=== PATIENT | female | born 1940 | race Caucasian/White ===

== ENCOUNTER 2024-10-25 13:13 | Outpatient (AMB) | payer MEDICARE, OTHER, SELFPAY ==
--- NOTE | 2024-10-25 13:24 | A.OFFPC_ITS ---
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 Intake Note: New patient visit Ball Points Inspector Required: No Allergies No Known Allergies Allergy (Verified 10/25/24 13:31) Tobacco use date assessed: 10/25/24 Fall risk assessment: 1 Fall in past year (Fell in [facility] on ice, nothing broken) Last assessed Fall Risk: 10/25/24 Dental Screening Dental Screen Date: 10/25/24 Did you have a dental visit in the last 12 months?: Yes Did you have a dental problem in the last 6 months where you did not have access to dental care?: No Was dental information given to patient?: Patient has dentist HPI HPI Comments History of Present Illness Details The patient is a 84 year old female with a past medical history of right breast cancer, osteopenia, DDD lumbar spine, neuropathy presenting to [facility] Heme/Onc: History of right breast cancer 2022 s/p lumpectomy. On anastrazole. Says Feb 2024 screening. BP: 164/86, 150/76. Blood pressure Had cold symptoms-patient took some acetaminophen. DXA recent-has not heard results. ROS CONSTITUTIONAL: Denies weight loss, fever and chills. HEENT: Denies changes in vision and hearing. RESPIRATORY: Denies SOB and cough. CV: Denies palpitations and CP GI: Denies abdominal pain, nausea, vomiting and diarrhea. : Denies dysuria and urinary frequency. MSK: Denies new myalgia and joint pain. SKIN: Denies rash and pruritus. NEUROLOGICAL: Denies headache PSYCHIATRIC: Denies recent changes in mood. PHYSICAL EXAM: GENERAL: Alert and oriented x 3. NAD EYES: EOMI. Anicteric. HENT: Moist mucous membranes. No scleral icterus. No cervical lymphadenopathy. LUNGS: Clear to auscultation bilaterally. CARDIOVASCULAR: Regular rate and rhythm. No murmur. No JVD. ABDOMEN: Soft, non-tender +bs EXTREMITIES: No edema. Non-tender. SKIN: No rashes or lesions. Warm. NEUROLOGIC: No focal neurological deficits. CN II-XII grossly intact PSYCHIATRIC: Cooperative. Appropriate mood and affect [facility] Social History Housing: Condominium Patient Tobacco Use Status: Never used Tobacco e-Cigarette/Vaping Use: Never Used Second Hand Smoke Exposure: No service: No Current occupational status: retired Current occupational exposures/hazards: No Cognitive needs: No Hearing needs: No Vision needs: No Coding Diagnoses Encounter to establish care Z76.89 Hyperlipidemia E78.5 Osteopenia M85.80 Assessment & Plan Assessment & Plan (1) Encounter to establish care: Code(s): Z76.89 - Persons encountering health services in other specified circumstances Category: Medical (2) Hyperlipidemia: Code(s): E78.5 - Hyperlipidemia, unspecified Category: Medical (3) Osteopenia: Code(s): M85.80 - Other specified disorders of bone density and structure, unspecified site Category: Medical
[2024-10-25 13:37] VITALS: BP 164/86; PULSE 83; TEMP 37.5; O2SAT 95; BMI 29.9
[2024-10-25 13:40] VITALS: BP 150/76
--- NOTE | 2024-10-25 13:51 | AM.OFFVISMDC ---
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 Heme/Onc: History of right breast cancer 2022 s/p lumpectomy. On anastrazole. Says Feb 2024 screening. Follows at [facility] BP: 164/86, 150/76. Blood pressure has been normal at last few visit. Had cold symptoms-patient took some acetaminophen. DXA recent-has not heard results. ROS CONSTITUTIONAL: Denies weight loss, fever and chills. HEENT: Nasal congestion RESPIRATORY: Denies SOB and cough. CV: Denies palpitations and CP GI: Denies abdominal pain, nausea, vomiting and diarrhea. : Denies dysuria and urinary frequency. MSK: Denies new myalgia and joint pain. SKIN: Denies rash and pruritus. NEUROLOGICAL: Denies headache PSYCHIATRIC: Denies recent changes in mood. PHYSICAL EXAM: GENERAL: Alert and oriented x 3. NAD EYES: EOMI. Anicteric. HENT: Moist mucous membranes. No scleral icterus. No cervical lymphadenopathy. LUNGS: Clear to auscultation bilaterally. CARDIOVASCULAR: Regular rate and rhythm. No JVD. ABDOMEN: Soft, non-tender +bs EXTREMITIES: No edema. Non-tender. SKIN: No rashes or lesions. Warm. NEUROLOGIC: No focal neurological deficits. CN II-XII grossly intact PSYCHIATRIC: Cooperative. Appropriate mood and affect Questionnaire Medicare Wellness Checkup What is your age?: 80 or older What gender do you identify with?: female During the past 4 weeks, how much have you been bothered by emotional problems such as feeling anxious, depressed, irritable, sad or downhearted, and blue?: not at all During the past 4 weeks, has your physical & emotional health limited your social activities with family, friends, neighbors, or groups?: not at all During the past 4 weeks, how much bodily pain have you generally had?: no pain During the past 4 weeks, was someone available to help you if you needed & wanted help?: yes, as much as I wanted During the past 4 weeks, what was the hardest physical activity you could do for at least 2 minutes?: moderate Can you get to places out of walking distance without help? (For eg., can you travel alone on buses, taxis or drive your car?): Yes Can you go shopping for groceries or clothes without someone's help?: Yes Can you prepare your own meals?: Yes Can you do your housework without help?: Yes Because of any health problems, do you need the help of another person with your personal care needs such as eating, bathing, dressing or getting around the house?: No Can you handle your own money without help?: Yes During the past 4 weeks, how would you rate your health in general?: excellent During the past 4 weeks how have things been going for you?: very well; could hardly better Are you having difficulties driving your car?: no Do you always fasten your seat belt when you are in a car?: yes, usually During past 4 weeks, have you been bothered by the following: never: Falling or dizzy when standing up, Sexual problems?, Trouble eating well?, Teeth or denture problems?, Problems using the telephone? and Tiredness or fatigue? Have you fallen 2 or more times in the past year?: No Are you afraid of falling?: No Are you a smoker?: no During the past 4 weeks, how many drinks of wine, beer, or other alcoholic beverages did you have?: no alcohol at all Do you exercise for about 20 minutes 3 or more times a week?: yes, some of the time Have you been given information to help with the following?: no: Hazards in your house that might hurt you? and no: Keeping track of your medications? How often do you have trouble taking medicines the way you have been told to take them?: I always take medicine as prescribed How confident are you that you can control & manage most of your health problems?: very confident What is your race?: White Mini Mental State Exam (MMSE) Orientation What is the (year) (season) (date) (day) (month)?: year, season, date, day and month Where are we (state) (county) (town or city) (hospital) (floor)?: state, county, town or city, hospital/clinic and floor Registration Name of 3 unrelated objects clearly and slowly, then ask patient to repeat all 3 of them. (1st repeat determines score. Make sure they can repeat all three): object 1 and object 2 Attention & Calculation (CHOOSE ONE) Ask pt to begin with 100 & count backward by 7. Stop after 5 repeats. If pt cannot ask them to spell the word WORLD backward.: 65 Recall Ask patient to repeat the 3 items from question #3.: object 3 Language Show patient a wristwatch & ask what it is. Repeat for pencil.: watch and pencil Ask the patient to repeat the phrase 'No ifs, ands, or buts' after you.: correct Ask the patient to 'take a piece of paper with their right hand' 'fold paper in half' 'place paper on floor': take paper in right hand, fold paper in half and place paper on floor Print the sentence 'CLOSE YOUR EYES' on a piece. If patient actually closes eyes then score.: followed written direction Give patient a blank piece of paper & ask to write a sentence. Score if it contains a noun & verb.: sentence contains subject and verb Ask patient to copy figure of intersecting pentagons exactly. Score if all 10 angles & 2 intersects are included.: all 10 angles present & 2 are intersected Score Score: 23 Activity of Daily Living Bathing - sponge bath, tub bath or shower: receives no assistance (gets in/out by self, if usual bathing means Dressing - getting clothes from closets & drawers, including inner/outer garments & fasteners.: gets clothes & gets completely dressed without help Toileting - going to the 'toilet room' for urine/bowel elimination & cleaning self/arranging clothes: goes to toilet room, cleans self, arranges clothes without help Transfer: moves in & out of bed and chair without help (may use support object) Continence: controls urination/bowel movements completely by self Feeding: feeds self without help Total Score: 0 Information obtained from: patient Using telephone: independent Traveling: independent Shopping: independent Preparing meals: independent Housework: independent Taking medicine: independent Managing money: independent PHQ-9 Over the last 2 weeks, how often have you been bothered by any of the following problems? 1. Little interest or pleasure in doing things: not at all 2. Feeling down, depressed, or hopeless: not at all 3. Trouble falling or staying asleep, or sleeping too much: not at all 4. Feeling tired or having little energy: not at all 5. Poor appetite or overeating: not at all 6. Feeling bad about yourself - or that you are a failure or have let yourself or your family down: not at all 7. Trouble concentrating on things, such as reading the newspaper or watching television: not at all 8. Moving or speaking so slowly that other people could have noticed. Or the opposite - being so fidgety or restless that you have been moving around a lot more than usual: not at all 9. Thoughts that you would be better off or of hurting yourself in some way: not at all Total score: 0 Depression Screening Interpretation: Negative Depression Screening Done: Yes 75601 - PHQ-9 Billing: Yes Source: Developed by Drs. Aneudy Doe, Susan Soto, Willy Yates and colleagues, with an educational bobbi from [employer]. Physical Exam Vital Signs: Last Vital Signs Temp 99.5 F 10/25/24 13:37 Pulse 83 10/25/24 13:37 BP 150/76 H 10/25/24 13:40 Pulse Ox 95 10/25/24 13:37 Oxygen Delivery Method Room Air 10/25/24 13:37 BMI result Body Mass Index 29.9 Assessment & Plan Assessment & Plan (1) Encounter to establish care: Code(s): Z76.89 - Persons encountering health services in other specified circumstances (2) Hyperlipidemia: Code(s): E78.5 - Hyperlipidemia, unspecified Qualifiers: Hyperlipidemia type: unspecified Qualified Code(s): E78.5 - Hyperlipidemia, unspecified (3) Osteopenia: Code(s): M85.80 - Other specified disorders of bone density and structure, unspecified site Qualifiers: Osteopenia location: unspecified Qualified Code(s): M85.80 - Other specified disorders of bone density and structure, unspecified site (4) Medicare annual wellness visit, subsequent: Code(s): Z00.00 - Encounter for general adult medical examination without abnormal findings Plan 84 yo to establish care/[facility] visit Past medical, surgical social reviewed HRA reviewed Independent Labs ordered Continue follow up onc Orders: Orders Complete Blood Count Auto Diff 10/25/24 E78.5 - Hyperlipidemia, unspecified, M85.80 - Other specified disorders of bone density and structure, unspecified site, R35.89 - Other polyuria, Z13.228 - Encounter for screening for other metabolic disorders Comprehensive Met. Panel 10/25/24 E78.5 - Hyperlipidemia, unspecified, M85.80 - Other specified disorders of bone density and structure, unspecified site, R35.89 - Other polyuria, Z13.228 - Encounter for screening for other metabolic disorders Vitamin D 25-OH (D2 and D3) 10/25/24 E78.5 - Hyperlipidemia, unspecified, M85.80 - Other specified disorders of bone density and structure, unspecified site, R35.89 - Other polyuria, Z13.228 - Encounter for screening for other metabolic disorders TSH reflex Free T4 10/25/24 E78.5 - Hyperlipidemia, unspecified, M85.80 - Other specified disorders of bone density and structure, unspecified site, R35.89 - Other polyuria, Z13.228 - Encounter for screening for other metabolic disorders Lipid Panel 10/25/24 E78.5 - Hyperlipidemia, unspecified, M85.80 - Other specified disorders of bone density and structure, unspecified site, R35.89 - Other polyuria, Z13.228 - Encounter for screening for other metabolic disorders Hemoglobin A1c 10/25/24 E78.5 - Hyperlipidemia, unspecified, M85.80 - Other specified disorders of bone density and structure, unspecified site, R35.89 - Other polyuria, Z13.228 - Encounter for screening for other metabolic disorders Quality Reporting (2019) Depression/Bipolar (159/160/161/177) PHQ-9: Total score: 0 Coding Level of Care Code Medicare Subsequent (G0439) Diagnoses Encounter to establish care Z76.89 Hyperlipidemia, unspecified hyperlipidemia type E78.5 Hyperlipidemia type: unspecified Osteopenia, unspecified location M85.80 Osteopenia location: unspecified Medicare annual wellness visit, subsequent Z00.00 Additional Codes PHQ-9 - 64830 - PHQ-9 Billing: Yes ([id number])
[2024-10-25 13:52] VITALS: BMI 29.9
--- OUTSIDE RECORDS SUMMARY | 2024-10-25 14:30 | XMS_ITS ---
[facility] Name [facility] Organization Unknown Care Team Organization Name Specialty Phone Email Start Date End [facility] Misti Bangura DO Primary Care 03/01/202209/21
== END 2024-10-25 13:58 | disposition home or self-care (01) ==
PROVIDERS: PCP Internal Medicine; Visit Provider Internal Medicine
DX: Z00.00 Encounter for general adult medical examination without abnormal findings (principal); E78.5 Hyperlipidemia, unspecified; Z76.89 Persons encountering health services in other specified circumstances; M85.80 Other specified disorders of bone density and structure, unspecified site

== ENCOUNTER 2024-10-25 13:13 | Outpatient (REF) | payer MEDICARE, OTHER, SELFPAY ==
[2024-10-25 17:53] LABS: MANUAL DIFF FLAG NO
[2024-10-25 18:13] LABS: Hematocrit 37.7 % (37.0-47.0); Hemoglobin 12.5 g/dl (12.0-16.0); Imm Gran Abs Auto 0.02 X10*3/uL (0.00-0.03); Imm Gran Pct Auto 0.3 % (0.0-0.4); Lymphocytes Absolute Auto 0.7 X10*3/uL (1.2-4.9); Mean Corpuscular HGB Conc 33.2 g/dl (31.0-35.0); Mean Corpuscular Hemoglobin 30.6 pg (27.0-33.0); Mean Corpuscular Volume 92.2 fL (80.0-98.0); NRBC Abs Auto 0.000 X10*3/uL (0.0-0.012); NRBC Pct Auto 0.0 /100WBC (0.0-0.2); Platelet Count 175 X10*3/uL (160-400); Red Blood Count 4.09 X10*6/uL (4.20-5.50); White Blood Count 6.4 X10*3/uL (4.8-10.8)
[2024-10-25 18:24] LABS: Hemoglobin A1C 141.0450 umol/L; Total Hemoglobin (HGBA1C) 3280.0649 umol/L
[2024-10-25 18:41] LABS: Alanine Aminotransferase 21 U/L (0-31); Albumin Level 4.5 g/dL (3.5-5.0); Alkaline Phosphatase 65 U/L (39-117); Anion Gap 14 (12-20); Aspartate Amino Transferase 36 U/L (5-31); Blood Urea Nitrogen 27 mg/dL (9-16); Calcium 10.4 mg/dL (8.4-10.2); Carbon Dioxide 31 mmol/L (22-29); Chloride 102 mmol/L (96-108); Cholesterol 187 mg/dL (<200); Estimated Glomerular Filt Rate 39; HDL Cholesterol 40 mg/dL (>40); Potassium 4.9 mmol/L (3.3-5.1); Sodium 142 mmol/L (135-145); Total Protein 7.1 g/dL (6.5-8.0); Triglycerides 161 mg/dL (<150)
[2024-10-31 15:19] LABS: Vitamin D 25-OH, D2 <4 ng/mL; Vitamin D 25-OH, D3 33 ng/mL; Vitamin D 25-OH, Total 33 ng/mL (30-100)
== END 2024-10-25 13:14 | disposition home or self-care (01) ==
LOC: HO.WFDLDS 13:13
PROVIDERS: PCP Internal Medicine; Visit Provider Internal Medicine
DX: Z00.00 Encounter for general adult medical examination without abnormal findings (principal); Z13.228 Encounter for screening for other metabolic disorders; Z13.1 Encounter for screening for diabetes mellitus; E78.5 Hyperlipidemia, unspecified; M85.80 Other specified disorders of bone density and structure, unspecified site; R35.89 Other polyuria; Z76.89 Persons encountering health services in other specified circumstances
CPT/HCPCS: 36415; 80053; 80061; 82306; 83036; 84443; 85025; 96127

== ENCOUNTER 2024-12-31 15:03 | Outpatient (AMB) | payer MEDICARE, OTHER, SELFPAY ==
--- NOTE | 2024-12-31 15:16 | A.OFFPC_ITS ---
Vital Signs 12/31/24 15:24 12/31/24 15:26 Height 5 ft 4.72 in Weight 180 lb BMI 30.2 BP 146/78 H 140/88 H Blood Pressure Location Rt brachial Rt brachial Position Sitting Sitting Respiration 14 Pulse 82 Pulse Source Pulse Oximeter Temp 98.4 F Temp Source Oral Pulse Oximetry (%) 97 Oxygen Delivery Method Room Air Intake Visit Reasons: reid discharge/elloquis Intake Note: Hospital discharge follow up. 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: No Allergies No Known Allergies Allergy (Verified 12/31/24 15:20) Tobacco use date assessed: 12/31/24 Fall risk assessment: 1 Fall in past year (last February on the ice.) Last assessed Fall Risk: 12/31/24 Dental Screening Dental Screen Date: 12/31/24 Did you have a dental visit in the last 12 months?: Yes Did you have a dental problem in the last 6 months where you did not have access to dental care?: No Was dental information given to patient?: Patient has dentist HPI HPI Comments History of Present Illness Details The patient is a 84 year old female with a past medical history of right breast cancer, osteopenia, DDD lumbar spine, neuropathy presenting for ER follow up/DVT Patient was seen in [facility] ER after outpatient duplex ordered by onc for LLE swelling showed +femoral DVT. Labs, vitals reassuring. She was started on eliquis. She is tolerating the medication well. Swelling has lessened. She denies shortness of breath. Thought to be provoked by bus ride to [place]. She was quite squished and did not have a lot of room to move. Heme/Onc: History of right breast cancer 2022 s/p lumpectomy. On anastrazole. Says Feb 2024 screening. Follows at [facility] BP: Borderline. Blood pressure has been normal at last few visit, mildly elevated today ROS see HPI PHYSICAL EXAM: GENERAL: Alert and oriented x 3. NAD EYES: EOMI. Anicteric. HENT: Moist mucous membranes. No scleral icterus. No cervical lymphadenopathy. LUNGS: Clear to auscultation bilaterally. CARDIOVASCULAR: Regular rate and rhythm. No JVD. ABDOMEN: Soft, non-tender +bs EXTREMITIES: No edema. Non-tender. SKIN: No rashes or lesions. Warm. NEUROLOGIC: No focal neurological deficits. CN II-XII grossly intact PSYCHIATRIC: Cooperative. Appropriate mood and affect [facility] Surgical History H/O: hysterectomy History of tonsillectomy History of appendectomy Social History [facility] Patient Tobacco Use Status: Never used Tobacco e-Cigarette/Vaping Use: Never Used Second Hand Smoke Exposure: No service: No Current occupational status: retired Cognitive needs: No Hearing needs: No Vision needs: Yes (glasses) Questionnaire PHQ-9 Over the last 2 weeks, how often have you been bothered by any of the following problems? 1. Little interest or pleasure in doing things: not at all 2. Feeling down, depressed, or hopeless: not at all 3. Trouble falling or staying asleep, or sleeping too much: not at all 4. Feeling tired or having little energy: not at all 5. Poor appetite or overeating: not at all 6. Feeling bad about yourself - or that you are a failure or have let yourself or your family down: not at all 7. Trouble concentrating on things, such as reading the newspaper or watching television: not at all 8. Moving or speaking so slowly that other people could have noticed. Or the opposite - being so fidgety or restless that you have been moving around a lot more than usual: not at all 9. Thoughts that you would be better off or of hurting yourself in some way: not at all Total score: 0 Depression Screening Interpretation: Negative Depression Screening Done: Yes 61741 - PHQ-9 Billing: Yes Source: Developed by Drs. Aneudy Doe, Susan Soto, Willy Yates and colleagues, with an educational bobbi from [employer]. Thrive Questionnaire I am a: Patient What is your living situation today?: I have a steady place to live Within the past 12 months, did the food you bought not last and you didn't have the money to get more?: Never true Within the past 12 months, did you worry whether your food would run out before you got money to buy more?: Never true Do you have trouble paying for medicines?: No Do you have trouble getting transportation to medical appointments?: No Do you have trouble paying your heating and electricity bill?: No Do you have trouble taking care of your child, family member or friend?: No Do you have trouble with day-to-day activities such as bathing, preparing meals, shopping, managing finances, etc.?: No Are you currently unemployed and looking for a job?: No Are you interested in more education?: No Please select the resources that you would like help with: None Currently or been in a relationship where the following occur: No concerns reported THRIVE Score: 0 AUDIT C Alcohol Use Questionnaire (AUDIT-C) 1. How often do you have a drink containing alcohol?: Never 3. How often do you have six or more drinks on one occasion?: Never Total Score: 0 DIANDRA-7 AMB Questionnaire DIANDRA-7 Feeling nervous, anxious, or on edge: 0 = Not at all Not being able to stop or control worryin = Not at all Worrying too much about different things: 0 = Not at all Trouble relaxin = Not at all Being so restless that it is hard to sit still: 0 = Not at all Becoming easily annoyed or irritable: 0 = Not at all Feeling afraid as if something awful might happen: 0 = Not at all Total DIANDRA-7 score (0-4 normal; 5-9 mild; 10-14 moderate; 15-21 severe): 0 Source: Developed by Drs. Aneudy Doe, Susan Soto, Willy Yates and colleagues, with an educational bobbi from [employer]. Physical exam (Primary Care) Vital Signs: Last Vital Signs Temp 98.4 F 12/31/24 15:24 Pulse 82 12/31/24 15:24 Resp 14 12/31/24 15:24 BP 140/88 H 12/31/24 15:26 Pulse Ox 97 12/31/24 15:24 Oxygen Delivery Method Room Air 12/31/24 15:24 BMI result Body Mass Index 30.2 Tobacco/Smoking Status: Tobacco use Status Tobacco use date assessed 12/31/24 12/31/24 15:26 Patient Tobacco Use Status Never used Tobacco 12/31/24 15:26 e-Cigarette/Vaping Use Never Used 12/31/24 15:26 PHQ-9: PHQ-9 Score PHQ-9: Total score 0 12/31/24 16:01 Depression Screening Interpretation: Negative Currently or been in a relationship where the following occur: No concerns reported Coding Level of Care Code Est Pt Level 4 (50054) Diagnoses Acute deep vein thrombosis (DVT) of femoral vein of left lower extremity I82 .412 Chronicity: acute Hyperlipidemia, unspecified hyperlipidemia type E78.5 Hyperlipidemia type: unspecified Osteopenia, unspecified location M85.80 Osteopenia location: unspecified Additional Codes PHQ-9 - 49185 - PHQ-9 Billing: Yes ([id number]) Assessment & Plan Assessment & Plan (1) Left femoral vein DVT: Code(s): I82.412 - Acute embolism and thrombosis of left femoral vein Category: Medical Qualifiers: Chronicity: acute Qualified Code(s): I82.412 - Acute embolism and thrombosis of left femoral vein (2) Hyperlipidemia: Code(s): E78.5 - Hyperlipidemia, unspecified Category: Medical Qualifiers: Hyperlipidemia type: unspecified Qualified Code(s): E78.5 - Hyperlipidemia, unspecified (3) Osteopenia: Code(s): M85.80 - Other specified disorders of bone density and structure, unspecified site Category: Medical Qualifiers: Osteopenia location: unspecified Qualified Code(s): M85.80 - Other specified disorders of bone density and structure, unspecified site Plan 84 year old for ER follow up ER course reviewed Stable on eliquis without complication Provoked. Discussed minimum 3 month AC but hematology may want to extend given anastrazole therapy. Medications: New Eliquis (apixaban) 5 mg PO BID 180 tabs 1RF NS
[2024-12-31 15:24] VITALS: BP 146/78; PULSE 82; RESP 14; TEMP 36.9; O2SAT 97; BMI 30.2
[2024-12-31 15:26] VITALS: BP 140/88
== END 2024-12-31 15:53 | disposition home or self-care (01) ==
LOC: HO.HMCFM 15:04
PROVIDERS: PCP Internal Medicine; Visit Provider Internal Medicine
DX: I82.412 Acute embolism and thrombosis of left femoral vein (principal); E78.5 Hyperlipidemia, unspecified; M85.80 Other specified disorders of bone density and structure, unspecified site

== ENCOUNTER → 2024-12-31 15:03 | Outpatient (BNVA) | payer MEDICARE, OTHER, SELFPAY | PROVIDERS: PCP Internal Medicine; Visit Provider Internal Medicine | DX: I82.412 Acute embolism and thrombosis of left femoral vein (principal); E78.5 Hyperlipidemia, unspecified; M85.80 Other specified disorders of bone density and structure, unspecified site; C50.911 Malignant neoplasm of unspecified site of right female breast; Z79.811 Long term (current) use of aromatase inhibitors; Z79.01 Long term (current) use of anticoagulants; Z13.31 Encounter for screening for depression | CPT/HCPCS: 96127; 99212 ==